=== PATIENT | male | born 1965 | race Caucasian/White ===

== ENCOUNTER 2018-07-21 07:57 | Day surgery (SDC) | payer BC, OTHER ==
[~2018-07-21 07:57] MED LIST: LIDOCAINE HCL 1% MPF 30 SOL ONE; PROPOFOL 500 MG/50 ML EMU IV ONE
[2018-07-21] MEDS ORDERED: PROPOFOL 500 MG/50 ML EMU IV ONE (10:12)
[2018-07-21 11:03] VITALS: O2SAT 97
[2018-07-21 11:32] VITALS: BP 131/90; PULSE 71; RESP 16; TEMP 97.6
== END 2018-07-21 11:41 | disposition home or self-care (01) | DRG 951 ==
LOC: SURG 07:57
PROVIDERS: ATTEND Internal Medicine Gastroenterology
DX: Z12.11 Encounter for screening for malignant neoplasm of colon (principal); K57.32 Diverticulitis of large intestine without perforation or abscess without bleeding; K22.10 Ulcer of esophagus without bleeding; R13.10 Dysphagia, unspecified; K64.8 Other hemorrhoids; K31.89 Other diseases of stomach and duodenum; K44.9 Diaphragmatic hernia without obstruction or gangrene; L53.9 Erythematous condition, unspecified
CPT/HCPCS: 99001; J2001; J2704

== ENCOUNTER 2018-12-09 20:12 | Emergency (ER) | payer OTHER | END 2018-12-10 00:25 | disposition home or self-care (01) | LOC: ED 12-10 00:25 ==